=== PATIENT | male | born 1945 | race Caucasian/White ===

== ENCOUNTER 2016-12-06 08:27 | Day surgery (SDC) | payer MEDICARE, OTHER ==
[~2016-12-06] VITALS: Ht 170.2 cm; Wt 93.6 kg
[2016-12-06] VITALS (8 sets, daily range): BP systolic 94–134; BP diastolic 43–80; PULSE 73–96; RESP 12–20; TEMP 98; O2SAT 93–98
[2016-12-06] MEDS ORDERED: AMIO200T PO (08:44)
[2016-12-06] MEDS ORDERED: GABA100C4 PO (08:44)
[2016-12-06] MEDS ORDERED: ALLO300T2 PO (08:44)
[2016-12-06] MEDS ORDERED: OMEP20TA PO (08:44)
[2016-12-06] MEDS ORDERED: VENL75TA PO (08:44)
[2016-12-06] MEDS ORDERED: DOXE50CA3 PO (08:44)
[2016-12-06] MEDS ORDERED: LEVO.125 PO (08:44)
[2016-12-06] MEDS ORDERED: MAGN250T11 PO (08:44)
[2016-12-06] MEDS ORDERED: METO50TA PO (08:44)
[2016-12-06] MEDS ORDERED: TAMS0.4C4 PO (08:44)
[2016-12-06] MEDS ORDERED: WELC625T2 PO (08:44)
[2016-12-06] MEDS ORDERED: METF500T PO (08:44)
[2016-12-06] MEDS ORDERED: SODIUM CHLOR 0.9% 1000 ML IV SCH (09:00)
[2016-12-06 10:49] LABS: AUTOMATED NEUTROPHIL # 1.3 TH/MM3 (1.8-7.7); HEMATOCRIT 32.5 % (39.0-51.0); LYMPH % 22.6 % (9.0-44.0); LYMPHOCYTE # 0.4 TH/MM3 (1.0-4.8); MEAN CELL VOLUME 99.1 FL (80.0-100.0); MEAN CORPUSCULAR HEMOGLOBIN 33.8 PG (27.0-34.0); MEAN CORPUSCULAR HGB CONC 34.1 % (32.0-36.0); MONO % 12.4 % (0.0-8.0); RED BLOOD COUNT 3.27 MIL/MM3 (4.50-5.90); RED CELL DISTRIBUTION WIDTH 13.5 % (11.6-17.2)
[2016-12-06] MEDS ORDERED: LIDOCAINE HCL 1% 20 ML VIAL ONE (11:07)
[2016-12-06 11:17] LABS: HEMO FLAGS AUTO DIFF; PLATELET COUNT 69 TH/MM3 (150-450)
[2016-12-06 11:19] LABS: PLATELET ESTIMATE SMEAR LOW (NORMAL); PLATELET MORPHOLOGY ENLARGED (NORMAL); SCAN/DIFF AUTO DIFF CONFIRMED
[2016-12-06] MEDS ORDERED: MIDAZOLAM HCL 2 MG/2 ML VIAL ONE (11:42)
[2016-12-06] MEDS ORDERED: HYDROmorphone HCL PF 2 MG/ML VIAL ONE (11:42)
--- NOTE | 2016-12-06 12:27 | PD.RAD ---
Post CT Procedure Prog Note Pre Procedure Diagnosis: (1) Thrombocytopenia Post Procedure Diagnosis: (1) Thrombocytopenia Procedure Date: Dec 06, 2016 Supervising Radiologist: Moises Hendrix Proceduralist/Assist: rajan du Anesthesia: Conscious Sedation Plan of Activity Patient to Unit: [facility] Patient Condition: Good See PACS Report for procedural detail/treatment Moises Hendrix MD Dec 06, 2016 12:27
[2016-12-06 14:38] LABS: BONE MARROW PROCESSING COMPLETE; IRON STAIN DONE; JENNER GIEMSA STAIN DONE
--- NOTE | 2016-12-06 16:41 | RADRPT ---
EXAM DATE/TIME: 12/06/2016 12:02 [place] COMPARISON: No previous studies available for comparison. INDICATIONS : Pancytopenia. SEDATION TIME: minutes BIOPSY SITE: Right iliac MEDICATION(S): 1.) 4 mg midazolam (Versed) IV 2.) 4 mcg hydromorphone (Dilaudid) IV DEVICE(S): 1.) 11 gauge Bone marrow biopsy needle MEDICAL HISTORY : Pancytopenia. SURGICAL HISTORY : None. ENCOUNTER: Initial ACUITY: 1 day PAIN SCORE: 0/10 LOCATION: Right pelvis A total of one core specimen(s) were obtained and sent to the laboratory for pathologic evaluation. PROCEDURE: 1. CT guided bone marrow biopsy. 2. Conscious sedation with continuous EKG and oximetry monitoring. 3. EKG and oximetry remained stable throughout the procedure. Prior to the procedure informed consent was obtained. Any appropriate prior imaging studies were rev iewed. Using automated exposure control and adjustment of the mA and/or kV according to patient size , radiation dose was kept as low as reasonably achievable to obtain optimal diagnostic quality images . DICOM format image data is available electronically for review and comparison. The site was prepped in a sterile fashion. Full sterile technique was used, including cap, mask, clementina rile gloves and gown and a large sterile sheet. Hand hygiene and 2% chlorhexidine and/or betadine/al cohol prep was utilized per protocol for cutaneous antisepsis. The skin and subcutaneous tissues wer e infiltrated with local anesthetic solution. With CT guidance the previously identified target was localized. Biopsy was performed using the presc ribed needle as above. Following biopsy marrow aspiration was performed with repeat puncture. Adequa te hemostasis was obtained with compression at the puncture site. Follow-up CT scan reveals no hemorrhage. Conscious sedation was performed with the prescribed dosages and duration as above in the presence of an independent trained radiology nurse to assist in the monitoring of the patient. EKG and oximetry remained stable throughout the procedure. The patient tolerated the procedure well and there were no complications. The patient was sent to Radiology Outpatient Unit in stable condition. CONCLUSION: 1. Uncomplicated CT guided bone marrow aspirate. 2. Uncomplicated CT guided bone marrow biopsy. Moises Hendrix MD on December 06, 2016 at 16:39 Board Certified Radiologist. This report was verified electronically.
== END 2016-12-06 17:45 | disposition home or self-care (01) ==
LOC: HRAD 08:27 → HRIP 08:30 → HRAD 17:45
PROVIDERS: ATTEND Internal Medicine Hematology & Oncology
DX: D69.6 Thrombocytopenia, unspecified (principal); D61.818 Other pancytopenia
CPT/HCPCS: 38221; 77012; 85025; 85097; 88184; 88185; 88237; 88264; 88280; 88305; 88311; 88313; 99152; 99153; C1830; G0364; J1170; J2250; 20225; 88312; 88341